=== PATIENT | female | born 1990 | race Caucasian/White ===

== ENCOUNTER → 2020-09-11 | Outpatient (REF) | payer OTHER ==
[~2020-09-11] MED LIST: MOTR200T44 PO; PRENTAB40 PO; TYLE167L PO
[2020-09-11 13:48] LABS: HEMATOCRIT 43.8 % (36.0-47.0); HEMOGLOBIN 14.2 g/dl (12.0-15.5); MEAN CORPUSCULAR HEMOGLOBIN 29.6 pg (27.0-33.0); MEAN CORPUSCULAR HGB CONC 32.4 g/dl (32.0-36.5); MEAN CORPUSCULAR VOLUME 91.4 fl (80.0-96.0); PLATELET COUNT, AUTOMATED 344 10^3/uL (150-450); RED BLOOD COUNT 4.79 10^6/uL (4.00-5.40); WHITE BLOOD COUNT 7.4 10^3/uL (4.0-10.0)
[2020-09-11 14:24] LABS: HCG, SERUM QUALITATIVE NEGATIVE (NEGATIVE)
[2020-09-11 14:30] LABS: PROLACTIN 4.9 NG/ML
[2020-09-12 15:07] LABS: INSULIN LEVEL 29.8 uIU/mL (2.6-24.9); TESTOSTERONE FREE (DIRECT) 1.9 pg/mL (0.0-4.2)
== END ==
LOC: M PLALAB 09:34
PROVIDERS: ATTEND Advanced Practice Midwife
DX: N92.1 Excessive and frequent menstruation with irregular cycle (principal); Z12.4 Encounter for screening for malignant neoplasm of cervix
CPT/HCPCS: 36415; 83525; 84146; 84402; 84403; 84443; 84703; 85027; G0123

== ENCOUNTER → 2020-09-14 | Outpatient (CLI) | payer OTHER ==
--- NOTE | 2020-09-15 08:36 | REP ---
INDICATION: HEAVY IRREGULAR MENSTRUAL CYCLES COMPARISON: None. TECHNIQUE: Transabdominal pelvic ultrasound followed by transvaginal examination for better evaluation of the endometrium and adnexa with color Doppler evaluation of the ovaries. FINDINGS: Bladder is unremarkable and measures 8.8 x 7.7 x 9.0 cm. Normal anteverted uterus measures 7.2 x 4.3 x 4.8 cm. The endometrial complex measures 6.7 mm thickness. No discrete uterine or endometrial abnormalities are appreciated. Bilateral ovaries demonstrate normal vascularity and bilateral follicles. Right ovary measures 2.9 x 1.3 x 1.2 cm. Left ovary measures 3.9 x 3.1 x 2.6 cm. No pelvic fluid or adnexal mass lesion. IMPRESSION: Normal pelvic ultrasound. <Electronically signed by Nayan Kingsley > 09/15/20 0836
== END ==
LOC: M WHC 14:02
PROVIDERS: ATTEND Advanced Practice Midwife
DX: N92.1 Excessive and frequent menstruation with irregular cycle (principal)